=== PATIENT | female | born 1945 | race American Indian/Alaskan Native ===

== ENCOUNTER 2017-02-02 16:47 | Inpatient (IN) | payer MEDICARE ==
[2017-02-02 17:52] LABS: BASO % 0.5 % (0.0-2.0); EOS # 0.2 K/uL (0.0-0.7); EOS % 2.4 % (0.0-4.0); HEMATOCRIT 40.1 % (34.0-47.0); LYMPH # 1.9 K/uL (1.0-4.3); LYMPH % 25.5 % (20.0-40.0); MEAN CELL VOLUME 82.3 fL (81.0-99.0); MEAN CORPUSCULAR HEMOGLOBIN 27.2 pg (27.0-31.0); MEAN PLATELET VOLUME 9.2 fL (7.2-11.7); MONO # 0.5 K/uL (0.0-0.8); MONO % 6.9 % (0.0-10.0); RED CELL DISTRIBUTION WIDTH 15.2 % (11.5-14.5); WHITE BLOOD COUNT 7.3 K/uL (4.8-10.8)
[2017-02-02 17:59] LABS: INR 1.1
--- NOTE | 2017-02-02 18:05 | CT ---
PROCEDURE: CT HEAD WITHOUT CONTRAST. HISTORY: ++BP, lips numb COMPARISON: None available. TECHNIQUE: Axial computed tomography images were obtained through the head/brain without intravenous contrast. Radiation dose: Total exam DLP = 823 mGy-cm. This CT exam was performed using one or more of the following dose reduction techniques: Automated exposure control, adjustment of the mA and/or kV according to patient size, and/or use of iterative reconstruction technique. FINDINGS: HEMORRHAGE: No intracranial hemorrhage. BRAIN: No mass effect or edema. Mild periventricular white matter hypodensity in the left compatible with mild microvascular ischemic disease. VENTRICLES: Unremarkable. No hydrocephalus. CALVARIUM: Unremarkable. PARANASAL SINUSES: Unremarkable as visualized. No significant inflammatory changes. MASTOID AIR CELLS: Unremarkable as visualized. No inflammatory changes. OTHER FINDINGS: None. IMPRESSION: Mild periventricular white matter hypodensity on the left compatible with mild microvascular ischemic disease.
[2017-02-02 18:12] LABS: CHLORIDE 96 mmol/L (98-107)
[2017-02-02 18:13] LABS: POTASSIUM 3.7 mmol/L (3.6-5.2); SODIUM 138 mmol/L (132-148)
[2017-02-02 18:15] LABS: ALB/GLOB RATIO 1.3 (1.0-2.1); AST/SGOT 26 U/L (14-36); BILIRUBIN,TOTAL 0.6 mg/dL (0.2-1.3); BLOOD UREA NITROGEN 19 mg/dL (7-17); CARBON DIOXIDE 29 mmol/L (22-30); CHOLESTEROL 240 mg/dL (0-199); GFR AFRICAN-AMERICAN > 60; GLUCOSE,RANDOM 97 mg/dL (65-105); TOTAL PROTEIN 7.7 g/dL (6.3-8.3)
[2017-02-02 18:16] LABS: ALKALINE PHOSPHATASE 112 U/L (38-126); ALT/SGPT 17 U/L (9-52); CALCIUM 9.5 mg/dl (8.6-10.4)
[2017-02-02] MEDS ORDERED: Aspirin 325 mg EC Tablets PO STA (18:42)
--- NOTE | 2017-02-02 18:44 | C.PDOC ---
History Of Present Illness 71 y/o female presents to emergency department, referred by visiting nurse, for uncontrolled hypertension. Patient reports having circumaural paresthesisa, word -finding and memory issues for 2 days. Patient reports good compliance with blood pressure medications. Denies fever, chills, chest pain, palpitations, shortness of breath, nausea, vomiting, dizziness, headache, or other associated symptoms. Time Seen by Provider: 02/02/17 16:59 Chief Complaint (Nursing): Weakness/Neurological Deficit History Per: Patient History/Exam Limitations: no limitations Onset/Duration Of Symptoms: Days Current Symptoms Are (Timing): Still Present Fall Associated With With Symptoms: No Past Medical History Reviewed: Historical Data, Nursing Documentation, Vital Signs Vital Signs: Last Vital Signs Temp 97.5 F L 02/02/17 21:38 Pulse 63 02/02/17 21:38 Resp 20 02/02/17 21:38 BP 163/91 H 02/02/17 21:38 Pulse Ox 98 02/02/17 21:38 - Medical History PMH: HTN Surgical History: Pacemaker Family History: States: Unknown Family Hx - Social History Hx Alcohol Use: No Hx Substance Use: No Review Of Systems Except As Marked, All Systems Reviewed And Found Negative. Constitutional: Negative for: Fever, Chills Cardiovascular: Negative for: Chest Pain Respiratory: Negative for: Cough, Shortness of Breath, Wheezing Gastrointestinal: Negative for: Vomiting, Abdominal Pain Skin: Negative for: Rash Physical Exam - Physical Exam Appears: Well, Non-toxic, No Acute Distress Skin: Normal Color, Warm, Dry Head: Atraumatic, Normacephalic Eye(s): bilateral: Normal Inspection, PERRL, EOMI Oral Mucosa: Moist Neck: Supple Chest: Symmetrical Cardiovascular: Rhythm Regular Respiratory: Normal Breath Sounds, No Rales, No Rhonchi, No Wheezing Gastrointestinal/Abdominal: Soft, No Tenderness Extremity: Normal ROM, Capillary Refill (< 2 sec. ) Neurological/Psych: Oriented x3, Normal Speech, Normal Cognition, Other (neuro intact, no focal deficits) ED Course And Treatment - Laboratory Results Result Diagrams: 02/02/17 17:45 02/02/17 17:45 Lab Interpretation: Normal (bnp/trop neg.) ECG: Interpreted By Or ECG Rhythm: A Paced Rate From EC O2 Sat by Pulse Oximetry: 100 Pulse Ox Interpretation: Normal - Radiology CXR: Interpreted by Me CXR Interpretation: Yes: No Acute Disease - Other Rad head CT X-Ray: Interpreted by Me, Read By Radiologist (neg) Reevaluation Time: 18:45 Reassessment Condition: Improved (persistently elev BP, clonidine 0.2 mg PO ordered) - Physician Consult Information Outcome Of Conversation: [id number]- d/w Dr. zaira Laws- ok to Tele obs. NIHSS Stroke Scale - Date/Time Evaluation Performed Date Performed: 02/02/17 Time Performed: 17:00 When Was NIHSS Performed: Baseline - How Severe is the Stoke Level of Consciousness: 0=Alert LOC to Questions: 0=Both comments correct LOC to commands: 0=Obeys both correctly Best Gaze: 0=Normal Visual: 0=No visual loss Facial: 0=Normal Motor Arm - Left: 0=No drift Motor Arm - Right: 0=No drift Motor Leg - Left: 0=No drift Motor Leg - Right: 0=No drift Limb Ataxia: 0=Absent Sensory: 0=Normal Best Language: 0=No aphasia Dysarthia: 0=Normal articulation Extinction & Inattention (Neglect): 0=Normal, no object Score: 0 Severity Of Stroke: 0= No Stroke rTPA Inclusion/Exclusion - Refusal of Treatment Patient Refused Treatment: No - Inclusion Criteria for Altepase Patient is 18 years or Older: Yes The Clinical Diagnosis of Ischemic Stroke That is Causing a Potentially Disabling Neurological Deficit: No Time of Onset is Well Established to be Less Than 270 Minute Before Treatment Would Begin: No Risk/Benefit Discussed With Patient/Family Member Present: No - Exclusion Criteria for Altepase Uncontrolled Hypertension at Time of Treatment (Systolic BP above 185 or Diastolic BP above 110 mmHg): Yes Known Bleeding Diathesis Including but Not Limited to: Platelets Below 100,000/ mm,PTT Above 40 sec After Heparin Use, Current Use of Oral Anitcoagulant With INR Greater Than 1.7 or PT Greater Than 15 secs: No Evidence of an Intracranial Hemorrhage: No Evidence of Major Acute Infarct With Signs Greater Than 1/3 MCA Territory: No Suspicion of Subarachnoid Hemorrhage on Pretreatment Evaluation Even if CT Head Negative For Hemorrhage: No Disposition Doctor Will See Patient In The: Hospital Counseled Patient/Family Regarding: Studies Performed, Diagnosis - Disposition Disposition: HOSPITALIZED Disposition Time: 18:46 Condition: GOOD - Clinical Impression Clinical Impression: Hypertensive urgency - Scribe Statement The provider has reviewed the documentation as recorded by the Gianluca Marroquin Provider Attestation: All medical record entries made by the Gianluca were at my direction and personally dictated by me. I have reviewed the chart and agree that the record accurately reflects my personal performance of the history, physical exam, medical decision making, and the department course for this patient. I have also personally directed, reviewed, and agree with the discharge instructions and disposition.
[2017-02-02] MEDS ORDERED: Aspirin 325 mg EC Tablets PO ONE (19:52)
--- NOTE | 2017-02-03 08:14 | CP.PCM.HP ---
History of Present Illness - History of Present Illness History of Present Illness: 71 y/o female with Childhood Asthma, depression and Chr low back pain. Patient has labile HTN but seem control w/ Bystolic 5 mg qD and Valsartan 160 mg qD. Patient has been having daily headache for 3-4 weeks. Yesterday seem worse and felt mild SOB. She was seen c/o home visiting nurse and was advise to go to ER c/o SBP > 210. Present on Admission - Present on Admission Any Indicators Present on Admission: Yes History of DVT/PE: No History of Uncontrolled Diabetes: No Urinary Catheter: No Decubitus Ulcer Present: No Review of Systems - Review of Systems Systems not reviewed;Unavailable: Acuity of Condition - Constitutional Constitutional: Headache. absent: Excessive Sweating, Fever, Increased Appetite , Malaise, Night Sweats - EENT Eyes: Blurred Vision. absent: Itchy Eyes, Loss of Peripheral Vision, Pain, Spots in Vision Ears: absent: Decreased Hearing, Ear Discharge, Ear Pain Nose/Mouth/Throat: absent: Nasal Congestion, Post Nasal Drip, Sinus Pressure, Dysphagia, Halitosis, Hoarsness - Cardiovascular Cardiovascular: Dyspnea. absent: Chest Pain, Diaphoresis, Dyspnea on Exertion, Edema, Irregular Heart Rhythm, Leg Edema, Palpitations, Rapid Heart Rate, Syncope - Respiratory Respiratory: absent: Cough, Hemoptysis, Dyspnea on Exertion, Pain on Inspiration , Chest Congestion, Excessive Mucous Production - Gastrointestinal Gastrointestinal: Heartburn. absent: Abdominal Pain, Belching, Bloating, Diarrhea, Dyspepsia, Fecal Incontinence, Nausea, Vomiting - Genitourinary Genitourinary: absent: Difficulty Urinating, Urinary Incontinence, Urinary Hesitance, Urinary Urgency, Freq UTI - Musculoskeletal Musculoskeletal: Abnormal Gait, Back Pain, Limited Range of Motion, Radiating Pain into Limb. absent: Joint Swelling, Loss of Height, Muscle Weakness, Neck Pain, Stiffness - Integumentary Integumentary: absent: Bleeding Lesions, New Lesions, Rash, Skin Ulcer - Neurological Neurological: Abnormal Gait, Abnormal Movements. absent: Abnormal Hearing, Burning Sensations, Focal Weakness, Lack of Coordination, Radicular Pain, Tremor - Hematologic/Lymphatic Hematologic: absent: Easy Bleeding, Easy Bruising, Lymphadenopathy Past Patient History - Infectious Disease Hx of Infectious Diseases: None - Past Medical History & Family History Past Medical History?: Yes - Past Social History Smoking Status: Never Smoked - CARDIAC Hx Hypertension: Yes Hx Pacemaker: Yes - NEUROLOGICAL Other/Comment: Walks with cane, pinched nerves? - MUSCULOSKELETAL/RHEUMATOLOGICAL Hx Falls: No - PSYCHIATRIC Hx Substance Use: No - SURGICAL HISTORY Hx Surgeries: Yes Other/Comment: Left chest pacemaker. - ANESTHESIA Hx Anesthesia: Yes Hx Anesthesia Reactions: No Hx Malignant Hyperthermia: No Has any member of the family had a problem w/ anesthesia?: No Meds Allergies/Adverse Reactions: Allergies Allergy/AdvReac Type Severity Reaction Status Date / Time No Known Allergies Allergy Unverified 02/02/17 16:59 Physical Exam - Constitutional Appears: No Acute Distress - Eye Exam Eye Exam: Normal appearance - ENT Exam ENT Exam: Mucous Membranes Moist - Neck Exam Neck exam: Positive for: Full Rom. Negative for: Lymphadenopathy, Normal Inspection, Thyromegaly - Respiratory Exam Respiratory Exam: Decreased Breath Sounds. absent: Chest Wall Tenderness, Clear to Auscultation Bilateral, Rales, Rhonchi, Wheezes - Cardiovascular Exam Cardiovascular Exam: REGULAR RHYTHM, +S1, +S2. absent: Gallop, JVD - GI/Abdominal Exam GI & Abdominal Exam: Soft. absent: Guarding, Tenderness - Extremities Exam Extremities exam: Positive for: full ROM, normal capillary refill, pedal pulses present. Negative for: calf tenderness, joint swelling, pedal edema - Neurological Exam Neurological exam: Abnormal Gait, Alert, CN II-XII Intact, Motor Sensory Deficit , Oriented x3 (* (+) oarse tremors on both hands) Results - Vital Signs Recent Vital Signs: Last Vital Signs Temp 98.1 F 02/03/17 05:15 Pulse 62 02/03/17 05:15 Resp 20 02/03/17 05:15 BP 178/88 H 02/03/17 05:15 Pulse Ox 98 02/03/17 05:15 - Labs Result Diagrams: 02/02/17 17:45 02/02/17 17:45 Labs: Laboratory Results - last 24 hr 02/02/17 21:11 TSH 3rd Generation 1.47 - EKG Data EKG Interpreted by: Myself EKG shows normal: Sinus rhythm Rate: Normal - EKG Data When Compared to Previous EKG: No Significant Change Assessment & Plan - Assessment and Plan (Free Text) Assessment: Accelerated HTN; Abn Head CT w/ movement disorder Chr Low Back pain; Asthma Cont ARB and B donald. Restart Symbicort. Tramadol + Acethaminphen BID Cont other Meds for depression or mood.
--- NOTE | 2017-02-03 08:27 | CP.PCM.CON ---
History of Present Illness - History of Present Illness History of Present Illness: I was asked to see patient by Dr. Casillas. Patient is a 71 year old female with a history of HTN, hypercholesterolemia, sick sinus syndrome s/p PPM who presents with malignant hypertension. The patient has had bloodpressure which is dificult to control. She had a systolic blood pressure greater than 200 on visiting nurse check. Review of Systems - Constitutional Constitutional: absent: As Per HPI, Anorexia, Chills, Daytime Sleepiness, Excessive Sweating, Fatigue, Fever, Frequent Falls, Headache, Increased Appetite , Lethargy, Malaise, Night Sweats, Snoring, Sleep Apnea, Weight Gain, Weight Loss, Weakness, Other - EENT Eyes: absent: As Per HPI, Blind Spots, Blurred Vision, Change in Vision, Decreased Night Vision, Diplopia, Discharge, Dry Eye, Exophthalmos, Floaters, Irritation, Itchy Eyes, Loss of Peripheral Vision, Pain, Photophobia, Requires Corrective Lenses, Sees Flashes, Spots in Vision, Tunnel Vision, Other Visual Disturbances, Loss of Vision, Other Ears: absent: As Per HPI, Decreased Hearing, Ear Discharge, Ear Pain, Tinnitus, Abnormal Hearing, Disequilibrium, Dizziness, Other Nose/Mouth/Throat: absent: As Per HPI, Epistaxis, Nasal Congestion, Nasal Discharge, Nasal Obstruction, Nasal Trauma, Nose Pain, Post Nasal Drip, Sinus Pain, Sinus Pressure, Bleeding Gums, Change in Voice, Dental Pain, Dry Mouth, Dysphagia, Halitosis, Hoarsness, Lip Swelling, Mouth Lesions, Mouth Pain, Odynophagia, Sore Throat, Throat Swelling, Tongue Swelling, Facial Pain, Neck Pain, Neck Mass, Other - Cardiovascular Cardiovascular: absent: As Per HPI, Acrocyanosis, Chest Pain, Chest Pain at Rest , Chest Pain with Activity, Claudication, Diaphoresis, Dyspnea, Dyspnea on Exertion, Edema, Irregular Heart Rhythm, Pain Radiating to Arm/Neck/Jaw, Leg Edema, Leg Ulcers, Lightheadedness, Orthopnea, Palpitations, Paroxysmal Nocturnal Dyspnea, Pedal Edema, Radiating Pain, Rapid Heart Rate, Slow Heart Rate, Syncope, Other - Respiratory Respiratory: absent: As Per HPI, Cough, Dyspnea, Hemoptysis, Dyspnea on Exertion , Wheezing, Snoring, Stridor, Pain on Inspiration, Chest Congestion, Excessive Mucous Production, Change in Mucous Color, Pain with Coughing, Other - Gastrointestinal Gastrointestinal: absent: As Per HPI, Abdominal Pain, Belching, Bloating, Change in Bowel Habits, Change in Stool Character, Coffee Ground Emesis, Constipation, Cramping, Diarrhea, Dyspepsia, Dysphagia, Early Satiety, Excessive Flatus, Fecal Incontinence, Heartburn, Hematemesis, Hematochezia, Loose Stools, Melena, Nausea, Odynophagia, Temesmus, Vomiting, Other - Genitourinary Genitourinary: absent: As Per HPI, Change in Urinary Stream, Difficulty Urinating, Dysuria, Flank Pain, Hematuria, Pyuria, Nocturia, Urinary Incontinence, Urinary Frequency, Urinary Hesitance, Urinary Urgency, Voiding Freq/Small Amts, Freq UTI, Hx Renal/Bladder Calculi, Hx /Renal Surgery, Bladder Distension, Other - Musculoskeletal Musculoskeletal: absent: As Per HPI, Abnormal Gait, Arthralgias, Atrophy, Back Pain, Deformity, Joint Swelling, Limited Range of Motion, Loss of Height, Muscle Cramps, Muscle Weakness, Myalgias, Neck Pain, Numbness, Radiating Pain into Limb, Stiffness, Tingling, Other - Integumentary Integumentary: absent: As Per HPI, Acne, Alopecia, Bleeding Lesions, Change in Hair, Change in Nails, Change in Pigmentation, Changing Lesions, Dry Skin, Erythema, Furuncle, Hirsutism, Lesions, New Lesions, Non-Healing Lesions, Photosensitivity, Pruritus, Rash, Skin Pain, Skin Ulcer, Sores, Striae, Swelling , Unusual Bruising, Wounds, Jaundice, Other - Neurological Neurological: absent: As Per HPI, Abnormal Gait, Abnormal Hearing, Abnormal Movements, Abnormal Speech, Behavioral Changes, Burning Sensations, Confusion, Convulsions, Disequilibrium, Dizziness, Numbness, Focal Weakness, Frequent Falls , Headaches, Lack of Coordination, Loss of Vision, Memory Loss, Paresthesias, Radicular Pain, Restless Legs, Sensory Deficit, Syncope, Tingling, Tremor, Vertigo, Weakness, Other Visual Disturbances, Other - Psychiatric Psychiatric: absent: As Per HPI, Abnormal Sleep Pattern, Anhedonia, Anxiety, Auditory Hallucinations, Behavioral Changes, Change in Appetite, Change in Libido, Confusion, Depression, Difficulty Concentrating, Hallucinations, Homicidal Ideation, Hopelessness, Irritability, Memory Loss, Mood Swings, Panic Attacks, Paranoia, Suicidal Ideation, Visual Hallucinations, Tactile Hallucinations, Other - Endocrine Endocrine: absent: As Per HPI, Change in Body Appearance, Change in Libido, Cold Intolorance, Deepening of Voice, Excessive Sweating, Fatigue, Flushing, Heat Intolorance, Increase in Ring/Shoe/Hat Size, Palpitations, Polydipsia, Polyphagia, Polyuria, Other - Hematologic/Lymphatic Hematologic: absent: As Per HPI, Easy Bleeding, Easy Bruising, Lymphadenopathy, Other Past Patient History - Infectious Disease Hx of Infectious Diseases: None - Past Medical History & Family History Past Medical History?: Yes - Past Social History Smoking Status: Never Smoked - CARDIAC Hx Hypertension: Yes Hx Pacemaker: Yes - NEUROLOGICAL Other/Comment: Walks with cane, pinched nerves? - MUSCULOSKELETAL/RHEUMATOLOGICAL Hx Falls: No - PSYCHIATRIC Hx Substance Use: No - SURGICAL HISTORY Hx Surgeries: Yes Other/Comment: Left chest pacemaker. - ANESTHESIA Hx Anesthesia: Yes Hx Anesthesia Reactions: No Hx Malignant Hyperthermia: No Has any member of the family had a problem w/ anesthesia?: No Meds Allergies/Adverse Reactions: Allergies Allergy/AdvReac Type Severity Reaction Status Date / Time No Known Allergies Allergy Unverified 02/02/17 16:59 - Medications Medications: Current Medications Acetaminophen (Tylenol 325mg Tab) 650 mg PO BID [facility] Escitalopram Oxalate (Lexapro) 30 mg PO DAILY [facility] Lamotrigine (Lamictal) 25 mg PO DAILY [facility] Losartan Potassium (Cozaar) 50 mg PO DAILY [facility] Pneumococcal Polyvalent Vaccine (Pneumovax 23 Vaccine) 0.5 ml IM .ONCE ONE Stop: 02/04/17 10:01 Fluticasone/Salmeterol (Advair Diskus 500/50) 1 puff INH RQ12 [facility] Tramadol HCl (Ultram) 50 mg PO BID [facility] Physical Exam - Constitutional Appears: Non-toxic - Head Exam Head Exam: NORMAL INSPECTION - Eye Exam Eye Exam: Normal appearance - ENT Exam ENT Exam: Mucous Membranes Moist - Neck Exam Neck exam: Positive for: Full Rom - Respiratory Exam Respiratory Exam: NORMAL BREATHING PATTERN - Cardiovascular Exam Cardiovascular Exam: REGULAR RHYTHM - GI/Abdominal Exam GI & Abdominal Exam: Normal Bowel Sounds - Rectal Exam Rectal Exam: Deferred - Extremities Exam Extremities exam: Negative for: pedal edema - Back Exam Back exam: NORMAL INSPECTION - Neurological Exam Neurological exam: Alert, Oriented x3 - Psychiatric Exam Psychiatric exam: Normal Affect - Skin Skin Exam: Normal Color Results - Vital Signs Recent Vital Signs: Last Vital Signs Temp 98.1 F 02/03/17 05:15 Pulse 62 02/03/17 05:15 Resp 20 02/03/17 05:15 BP 178/88 H 02/03/17 05:15 Pulse Ox 98 02/03/17 05:15 - Labs Result Diagrams: 02/02/17 17:45 02/02/17 17:45 Labs: Laboratory Results - last 24 hr 02/02/17 21:11 TSH 3rd Generation 1.47 - EKG Data EKG Interpreted by: Myself Assessment & Plan (1) Hypertensive urgency Assessment and Plan: will need aggressive blood pressure control. check echocardiogram. increase metoprolol Status: Acute (2) Sick sinus syndrome Assessment and Plan: atrial paced rhythm on EKG Status: Acute
[2017-02-03 08:44] LABS: RBC URINE 1 /hpf (0-3); URINE BACTERIA OCC (<OCC); URINE BILIRUBIN NEGATIVE (NEGATIVE); URINE BLOOD NEGATIVE (NEGATIVE); URINE COLOR Yellow (YELLOW); URINE GLUCOSE (UA) NORMAL (Normal); URINE KETONE NEGATIVE (NEGATIVE); URINE LEUKOCYTE ESTERASE TRACE Leu/uL (Negative); URINE PROTEIN NEGATIVE (NEGATIVE); URINE UROBILINOGEN NORMAL mg/dL (0.2-1.0); WBC URINE 7 /hpf (0-5)
--- NOTE | 2017-02-03 10:01 | RAD ---
HISTORY: Admission film COMPARISON: No prior. FINDINGS: LUNGS: Moderate venous congestion with left basilar airspace opacity. PLEURA: As above. CARDIOVASCULAR: Cardiomegaly. Left-sided pacemaker. OSSEOUS STRUCTURES: No significant abnormalities. VISUALIZED UPPER ABDOMEN: Normal. OTHER FINDINGS: None. IMPRESSION: Moderate venous congestion with left basilar airspace opacity.
[2017-02-03] MEDS: Fluticasone-Salmeterol 500-50mcg Diskus INH SCH (20:20)
[2017-02-04] MEDS: Fluticasone-Salmeterol 500-50mcg Diskus INH SCH (09:00)
[2017-02-04] MEDS ORDERED: Pneumococcal 23-Valent Vaccine IM ONE (10:00)
--- NOTE | 2017-02-04 11:04 | CP.PCM.PN ---
Subjective - Date & Time of Evaluation Date of Evaluation: 02/04/17 Time of Evaluation: 11:00 - Subjective Subjective: patient has no chest pain or headache. lopressor increased yesterday. Objective - Vital Signs/Intake and Output Vital Signs (last 24 hours): Temp Pulse Resp BP Pulse Ox 99.4 F 69 20 150/88 95 02/04/17 07:00 02/04/17 08:24 02/04/17 07:00 02/04/17 07:00 02/04/17 07:00 Intake and Output: 02/04/17 02/04/17 06:59 18:59 Intake Total 350 Balance 350 - Medications Medications: Current Medications Acetaminophen (Tylenol 325mg Tab) 650 mg PO BID [facility] Last Admin: 02/04/17 09:27 Dose: 650 mg Escitalopram Oxalate (Lexapro) 30 mg PO DAILY [facility] Last Admin: 02/04/17 09:30 Dose: 30 mg Lamotrigine (Lamictal) 25 mg PO DAILY [facility] Last Admin: 02/04/17 09:30 Dose: 25 mg Losartan Potassium (Cozaar) 50 mg PO DAILY [facility] Last Admin: 02/03/17 09:47 Dose: 50 mg Metoprolol Tartrate (Lopressor) 100 mg PO BID [facility] Last Admin: 02/04/17 09:31 Dose: 100 mg Fluticasone/Salmeterol (Advair Diskus 500/50) 1 puff INH RQ12 [facility] Tramadol HCl (Ultram) 50 mg PO BID [facility] Last Admin: 02/04/17 09:28 Dose: 50 mg - Labs Labs: PT 12.4 SECONDS (9.7-12.2) H 02/02/17 17:45 INR 1.1 02/02/17 17:45 APTT 32 SECONDS (21-34) 02/02/17 17:45 - Constitutional Appears: Non-toxic - Head Exam Head Exam: NORMAL INSPECTION - Eye Exam Eye Exam: Normal appearance - ENT Exam ENT Exam: Mucous Membranes Moist - Neck Exam Neck Exam: Full ROM - Respiratory Exam Respiratory Exam: NORMAL BREATHING PATTERN - Cardiovascular Exam Cardiovascular Exam: REGULAR RHYTHM - GI/Abdominal Exam GI & Abdominal Exam: Normal Bowel Sounds - Rectal Exam Rectal Exam: Deferred - Extremities Exam Extremities Exam: absent: Pedal Edema - Back Exam Back Exam: NORMAL INSPECTION - Neurological Exam Neurological Exam: Alert - Psychiatric Exam Psychiatric exam: Normal Affect - Skin Skin Exam: Normal Color Assessment and Plan (1) Hypertensive urgency Assessment & Plan: improving. I will increase losartan to 100 mg daily. Patient is stable fro discharge from a cardiac standpoint. Patient will follow up with her primary lane attendant, Dr. Campbell Status: Acute (2) Sick sinus syndrome Assessment & Plan: pacemaker function normal Status: Acute
--- NOTE | 2017-02-04 11:39 | CP.PCM.PN ---
Subjective - Date & Time of Evaluation Date of Evaluation: 02/04/17 Time of Evaluation: 11:36 - Subjective Subjective: S: Feels better. No repeat syncope. Deny chestpain, SOB or fever. Objective - Vital Signs/Intake and Output Vital Signs (last 24 hours): Temp Pulse Resp BP Pulse Ox 99.4 F 69 20 150/88 95 02/04/17 07:00 02/04/17 08:24 02/04/17 07:00 02/04/17 07:00 02/04/17 07:00 Intake and Output: 02/04/17 02/04/17 06:59 18:59 Intake Total 350 Balance 350 - Medications Medications: Current Medications Acetaminophen (Tylenol 325mg Tab) 650 mg PO BID [facility] Last Admin: 02/04/17 09:27 Dose: 650 mg Escitalopram Oxalate (Lexapro) 30 mg PO DAILY [facility] Last Admin: 02/04/17 09:30 Dose: 30 mg Lamotrigine (Lamictal) 25 mg PO DAILY [facility] Last Admin: 02/04/17 09:30 Dose: 25 mg Losartan Potassium (Cozaar) 100 mg PO DAILY [facility] Metoprolol Tartrate (Lopressor) 100 mg PO BID [facility] Last Admin: 02/04/17 09:31 Dose: 100 mg Fluticasone/Salmeterol (Advair Diskus 500/50) 1 puff INH RQ12 [facility] Tramadol HCl (Ultram) 50 mg PO BID [facility] Last Admin: 02/04/17 09:28 Dose: 50 mg - Labs Labs: PT 12.4 SECONDS (9.7-12.2) H 02/02/17 17:45 INR 1.1 02/02/17 17:45 APTT 32 SECONDS (21-34) 02/02/17 17:45 - Constitutional Appears: No Acute Distress - Head Exam Head Exam: NORMAL INSPECTION - Eye Exam Eye Exam: Normal appearance - ENT Exam ENT Exam: Normal Exam - Neck Exam Neck Exam: Normal Inspection - Respiratory Exam Respiratory Exam: NORMAL BREATHING PATTERN - Cardiovascular Exam Cardiovascular Exam: REGULAR RHYTHM - GI/Abdominal Exam GI & Abdominal Exam: Soft - Rectal Exam Rectal Exam: Deferred - Neurological Exam Neurological Exam: Alert - Psychiatric Exam Psychiatric exam: Normal Mood - Skin Skin Exam: Normal Color Assessment and Plan (1) Hypertensive urgency Status: Acute (2) Sick sinus syndrome Status: Acute (3) Syncope Status: Acute - Assessment and Plan (Free Text) Plan: P: Appreciate Cardiology notes. Awaiting Neurology notes.Continue medication
--- NOTE | 2017-02-05 08:41 | CP.PCM.PN ---
Subjective - Date & Time of Evaluation Date of Evaluation: 02/05/17 Time of Evaluation: 08:25 - Subjective Subjective: Pt d feels much better; no more headache or numbness on R side No CP, no more SOB, no fatigue Objective - Vital Signs/Intake and Output Vital Signs (last 24 hours): Temp Pulse Resp BP Pulse Ox 98.4 F 61 20 133/85 98 02/04/17 23:20 02/04/17 23:30 02/04/17 23:20 02/04/17 23:20 02/04/17 23:20 - Medications Medications: Current Medications Acetaminophen (Tylenol 325mg Tab) 650 mg PO BID [facility] Last Admin: 02/04/17 18:37 Dose: 650 mg Aspirin (Aspirin Chewable) 81 mg PO DAILY [facility] Escitalopram Oxalate (Lexapro) 30 mg PO DAILY [facility] Last Admin: 02/04/17 09:30 Dose: 30 mg Lamotrigine (Lamictal) 25 mg PO DAILY [facility] Last Admin: 02/04/17 09:30 Dose: 25 mg Losartan Potassium (Cozaar) 100 mg PO DAILY [facility] Metoprolol Tartrate (Lopressor) 100 mg PO BID [facility] Last Admin: 02/04/17 18:36 Dose: 100 mg Rosuvastatin Calcium (Crestor) 5 mg PO HS [facility] Fluticasone/Salmeterol (Advair Diskus 500/50) 1 puff INH RQ12 [facility] Last Admin: 02/04/17 09:00 Dose: 1 puff Tramadol HCl (Ultram) 50 mg PO BID [facility] Last Admin: 02/04/17 18:38 Dose: 50 mg - Labs Labs: PT 12.4 SECONDS (9.7-12.2) H 02/02/17 17:45 INR 1.1 02/02/17 17:45 APTT 32 SECONDS (21-34) 02/02/17 17:45 - Constitutional Appears: No Acute Distress - Eye Exam Eye Exam: Normal appearance - ENT Exam ENT Exam: Mucous Membranes Moist - Neck Exam Neck Exam: Full ROM. absent: Lymphadenopathy, Thyromegaly - Respiratory Exam Respiratory Exam: Clear to Ausculation Bilateral. absent: Rales, Rhonchi, Wheezes - Cardiovascular Exam Cardiovascular Exam: REGULAR RHYTHM, +S1, +S2, Murmur. absent: Gallop, JVD - GI/Abdominal Exam GI & Abdominal Exam: Soft. absent: Tenderness, Mass - Extremities Exam Extremities Exam: Full ROM. absent: Calf Tenderness, Joint Swelling, Normal Capillary Refill - Back Exam Back Exam: muscle spasm, paraspinal tenderness Assessment and Plan - Assessment and Plan (Free Text) Assessment: Accelerated HTN - controlled Abn CXR ? mass Cont meds/ check CT of chest
--- NOTE | 2017-02-05 08:56 | CP.PCM.PN ---
Subjective - Date & Time of Evaluation Date of Evaluation: 02/05/17 Time of Evaluation: 07:35 - Subjective Subjective: no new complaints Objective - Vital Signs/Intake and Output Vital Signs (last 24 hours): Temp Pulse Resp BP Pulse Ox 98.4 F 61 20 133/85 98 02/04/17 23:20 02/04/17 23:30 02/04/17 23:20 02/04/17 23:20 02/04/17 23:20 - Medications Medications: Current Medications Acetaminophen (Tylenol 325mg Tab) 650 mg PO BID [facility] Last Admin: 02/04/17 18:37 Dose: 650 mg Aspirin (Aspirin Chewable) 81 mg PO DAILY [facility] Escitalopram Oxalate (Lexapro) 30 mg PO DAILY [facility] Last Admin: 02/04/17 09:30 Dose: 30 mg Lamotrigine (Lamictal) 25 mg PO DAILY [facility] Last Admin: 02/04/17 09:30 Dose: 25 mg Losartan Potassium (Cozaar) 100 mg PO DAILY [facility] Metoprolol Tartrate (Lopressor) 100 mg PO BID [facility] Last Admin: 02/04/17 18:36 Dose: 100 mg Rosuvastatin Calcium (Crestor) 5 mg PO HS [facility] Fluticasone/Salmeterol (Advair Diskus 500/50) 1 puff INH RQ12 [facility] Last Admin: 02/04/17 09:00 Dose: 1 puff Tramadol HCl (Ultram) 50 mg PO BID [facility] Last Admin: 02/04/17 18:38 Dose: 50 mg - Labs Labs: PT 12.4 SECONDS (9.7-12.2) H 02/02/17 17:45 INR 1.1 02/02/17 17:45 APTT 32 SECONDS (21-34) 02/02/17 17:45 - Constitutional Appears: Non-toxic - Head Exam Head Exam: NORMAL INSPECTION - Eye Exam Eye Exam: Normal appearance - ENT Exam ENT Exam: Mucous Membranes Moist - Neck Exam Neck Exam: Full ROM - Respiratory Exam Respiratory Exam: NORMAL BREATHING PATTERN - Cardiovascular Exam Cardiovascular Exam: REGULAR RHYTHM - GI/Abdominal Exam GI & Abdominal Exam: Normal Bowel Sounds - Rectal Exam Rectal Exam: Deferred - Extremities Exam Extremities Exam: Pedal Edema - Back Exam Back Exam: NORMAL INSPECTION - Neurological Exam Neurological Exam: Alert - Psychiatric Exam Psychiatric exam: Normal Affect - Skin Skin Exam: Normal Color Assessment and Plan (1) Hypertensive urgency Assessment & Plan: improved Status: Acute (2) Sick sinus syndrome Assessment & Plan: PPM Status: Acute
[2017-02-05] MEDS ORDERED: Iohexol 350mg/ml 100 ML ONE (10:01)
--- NOTE | 2017-02-05 10:03 | CON ---
DATE: 02/03/2017 REASON FOR CONSULTATION: Word-finding difficulties, and paresthesias in the face. HISTORY OF PRESENTING ILLNESS: The patient is a 71-year-old female who was sent to the [facility] by a visiting nurse after the patient was noted to have uncontrolled blood pressure. The patient w as also noted to have numbness around the face, as well as difficulty finding words. Her symptoms we re present for the last 2 days. The patient's systolic blood pressure was in 200s. That is why she was brought here. She does complain of mild headache. Denies any other complaints. REVIEW OF SYSTEMS: Denies any chest pain, shortness of breath, abdominal pain, constipation, d iarrhea, dysuria, pyuria, cough or sputum production. PAST MEDICAL HISTORY: Includes hypertension. MEDICATIONS AT HOME: Include Lexapro, tramadol p.r.n., Diovan, Bystolic, and lamotrigine. ALLERGIES: No known drug allergies. SOCIAL HISTORY: Denies smoking, use of alcohol, or illicit drugs. FAMILY HISTORY: Reviewed and noncontributory to the case. GENERAL PHYSICAL EXAMINATION: The patient is an elderly pleasant female lying on the bed in no acute distress. Her blood pressure is 125/75, heart rate is 61 per minute, breathing at a rate of 16 per minute, temp erature is 98.3 degrees Fahrenheit. HENT EXAMINATION: Normocephalic, atraumatic. NECK: Supple. There are no carotid bruits. LUNGS: Clear. CARDIOVASCULAR SYSTEM EXAMINATION: S1, S2 audible. No murmurs. ABDOMEN: Soft, nontender. Bowel sounds present. NEUROLOGY EXAMINATION: MENTAL STATUS: The patient is awake, alert, oriented to place, year, person. She follows all simple commands. Her recent memory is 2/3 in 5 minutes. She is able to do serial 7. CRANIAL NERVE EXAMINATION: Pupils are 3 mm, bilaterally reactive to light. Visual castillo are full. Extraocular movements are intact. There is no facial asymmetry. Palate is upgoing bilaterally and tongue is midline. MOTOR EXAMINATION: Tone is normal. Power is 5/5 bilaterally in all extremities. Reflexes 1+ and sy mmetrical. Plantars downgoing bilaterally. CEREBELLAR EXAMINATION: [id number] shows no dysmetria. GAIT: Narrow based. She walks with the help of a cane, and is low. Labs reviewed shows WBC 7.3, hemoglobin 13.2, hematocrit of 14.1, and platelets of 211. INR is 1.1. Sodium is 138, potassium 3.7, chloride 96, carbon dioxide content 29, BUN of 19, creatinine 0.9, and glucose of 100. Her urine WBC is 1, nitrite negative. She had a CT scan of the head done which showed mild periventricular white matter hypodensity on the left, compatible with mild microvascular ischemic disease. IMPRESSION: Status post word-finding difficulty, with tingling around the face. This may have been secondary to hypertensive encephalopathy. Rule out any seizures. RECOMMENDATIONS: 1. The patient to have an electroencephalogram. 2. Unfortunately, we cannot obtain MRI because of the history of pacemaker placement. 3. Consider starting the patient on aspirin, with underlying cerebrovascular disease. 4. The patient's blood pressure is better controlled. 5. Please continue supportive care and other treatment. Thank you for the opportunity to participate in the care of this patient. William Tabor MD cc: [id number] TT: 02/03/2017 19:58:07 Confirmation # [id number] Dictation # [id number] [place]
--- NOTE | 2017-02-05 11:50 | CT ---
PROCEDURE: CT Chest with contrast HISTORY: Air space opacity on left base COMPARISON: None. TECHNIQUE: Contiguous axial images were obtained through the chest with intravenous contrast enhancement. Sagittal and coronal reconstructions were performed. IV contrast: 100 mL Omnipaque 350 Radiation dose (DLP): 424.50 mGy-cm. This CT exam was performed using one or more of the following dose reduction techniques: Automated exposure control, adjustment of the mA and/or kV according to patient size, and/or use of iterative reconstruction technique. FINDINGS: LUNGS: Clear lungs. Visualized airway clear. MEDIASTINUM: Unremarkable thoracic aorta. No aneurysm or dissection. Normal heart size. Permanent pacemaker noted. Main pulmonary artery unremarkable. No vascular congestion. No lymphadenopathy. There is 1.1 cm nodule in the right lobe of the thyroid and a 1.7 cm nodule in the left lobe of the thyroid. Further evaluation with thyroid ultrasound examination is suggested. PLEURA: No pleural fluid. No pneumothorax. BONES: No fracture. No destructive lesion. UPPER ABDOMEN: In the superior right hepatic lobe, at the dome of the liver, there is a 9 mm homogeneously enhancing mass identified. This may represent a hemangioma but the possibility of hepatic cellular neoplasm must also be considered. Further evaluation with multiphasic contrast enhanced CT examination is advised. Incidental calcified granuloma noted in the medial left hepatic lobe. Status post cholecystectomy. Bilateral renal cortical cysts, largest 3.4 cm in the upper pole right kidney. OTHER FINDINGS: None. IMPRESSION: No pulmonary infiltrate. Permanent pacemaker noted. Nodule in the each lobe of the thyroid for which correlation with thyroid ultrasound examination is advised. 9 mm enhancing mass in right lobe of liver. Evaluation with multiphasic contrast enhanced CT examination is advised. Bilateral thyroid nodules. Correlation with thyroid ultrasound examination is suggested. Bilateral renal cysts.
--- NOTE | 2017-02-05 17:36 | CARD ---
APPROVED REPORT EXAM: Two-dimensional and M-mode echocardiogram with Doppler and color Doppler. Other Information Quality : GoodRhythm : INDICATION Dyspnea Syncope RISK FACTORS Hypertension M-Mode DIMENSIONS RVDd1.87 (2.1-3.2cm)Left Atrium (MM)3.37 (2.5-4.0cm) IVSd0.87 (0.7-1.1cm)Aortic Root2.92 (2.2-3.7cm) LVDd5.03 (4.0-5.6cm)Aortic Cusp Exc.2.19 (1.5-2.0cm) PWd0.97 (0.7-1.1cm)FS (%) 48 % LVDs2.64 (2.0-3.8cm)LVEF (%)79 (>50%) Mitral Valve MV E Zjevexmk312.1cm/sMV A Xnafxhyk04.5cm/sE/A ratio2.1 TDI E/Lateral E'0.0E/Medial E'0.0 Tricuspid Valve TR Peak Ivipqbvt202kh/sTR Peak Gr.[id number] LEFT VENTRICLE The left ventricle is normal size. There is normal left ventricular wall thickness. The left ventricular systolic function is normal. The left ventricular ejection fraction is within the normal range. There is normal LV segmental wall motion. The left ventricular diastolic function is normal. RIGHT VENTRICLE The right ventricle is normal size. The right ventricular systolic function is normal. There is a pacemaker lead in the right ventricle. ATRIA The left atrium size is normal. There is a pacemaker lead seen in the right atrium. AORTIC VALVE The aortic valve is normal in structure. No aortic regurgitation is present. MITRAL VALVE The mitral valve is normal in structure. Mitral regurgitation is trace. TRICUSPID VALVE The tricuspid valve is normal in structure. There is mild tricuspid regurgitation. Right ventricular systolic pressure is estimated at less than 30 mmHg. PULMONIC VALVE The pulmonic valve is not well visualized. GREAT VESSELS The ascending aorta is normal in size. The IVC is normal in size and collapses >50% with inspiration. PERICARDIAL EFFUSION There is no pericardial effusion. <Conclusion> Normal biventricular function. No significant valvular abnormality noted. Pacemaker wire in right heart. No pericardial effusion.
[2017-02-05] MEDS: Fluticasone-Salmeterol 500-50mcg Diskus INH SCH (19:23)
[2017-02-06] MEDS: Fluticasone-Salmeterol 500-50mcg Diskus INH SCH ×2 (07:40→19:09)
--- NOTE | 2017-02-06 08:31 | CP.PCM.PN ---
Subjective - Date & Time of Evaluation Date of Evaluation: 02/06/17 Time of Evaluation: 08:30 - Subjective Subjective: Pt no complain; no CP, no SOB, no edema, no cough BP still slight increase but asymptomatic. Objective - Vital Signs/Intake and Output Vital Signs (last 24 hours): Temp Pulse Resp BP Pulse Ox 97.9 F 60 18 162/97 H 97 02/06/17 07:30 02/06/17 07:30 02/06/17 07:30 02/06/17 07:30 02/06/17 07:30 Intake and Output: 02/06/17 02/06/17 06:59 18:59 Intake Total 350 Balance 350 - Medications Medications: Current Medications Acetaminophen (Tylenol 325mg Tab) 650 mg PO BID [facility] Last Admin: 02/05/17 18:24 Dose: 650 mg Aspirin (Aspirin Chewable) 81 mg PO DAILY [facility] Last Admin: 02/05/17 11:52 Dose: 81 mg Escitalopram Oxalate (Lexapro) 30 mg PO DAILY [facility] Last Admin: 02/05/17 12:32 Dose: 30 mg Lamotrigine (Lamictal) 25 mg PO DAILY [facility] Last Admin: 02/05/17 12:32 Dose: 25 mg Losartan Potassium (Cozaar) 100 mg PO DAILY [facility] Last Admin: 02/05/17 11:52 Dose: 100 mg Metoprolol Tartrate (Lopressor) 100 mg PO BID [facility] Last Admin: 02/05/17 18:23 Dose: 100 mg Rosuvastatin Calcium (Crestor) 5 mg PO HS [facility] Last Admin: 02/05/17 21:43 Dose: 5 mg Fluticasone/Salmeterol (Advair Diskus 500/50) 1 puff INH RQ12 [facility] Last Admin: 02/06/17 07:40 Dose: 1 puff Tramadol HCl (Ultram) 50 mg PO BID [facility] Last Admin: 02/05/17 18:26 Dose: 50 mg - Labs Labs: PT 12.4 SECONDS (9.7-12.2) H 02/02/17 17:45 INR 1.1 02/02/17 17:45 APTT 32 SECONDS (21-34) 02/02/17 17:45 - Constitutional Appears: No Acute Distress - Eye Exam Eye Exam: Normal appearance - ENT Exam ENT Exam: Mucous Membranes Moist - Neck Exam Neck Exam: Full ROM. absent: Lymphadenopathy, Normal Inspection - Respiratory Exam Respiratory Exam: Decreased Breath Sounds, Clear to Ausculation Bilateral. absent: Rales, Rhonchi - Cardiovascular Exam Cardiovascular Exam: REGULAR RHYTHM, +S1, +S2. absent: Gallop, Murmur - GI/Abdominal Exam GI & Abdominal Exam: Soft, Normal Bowel Sounds. absent: Tenderness - Extremities Exam Extremities Exam: Full ROM, Normal Capillary Refill. absent: Calf Tenderness, Joint Swelling, Pedal Edema Assessment and Plan - Assessment and Plan (Free Text) Assessment: HTN urgency - acceptably high Asthma; Chr LBP Licer lesion ?? malignant GI eval Cont meds / add HCTZ Encourage to ambulate
[2017-02-06] MEDS ORDERED: Iodixanol 320 MG/ML 100 ML BOTTLE IV ONE (10:14)
--- NOTE | 2017-02-06 11:20 | CP.PCM.CON ---
History of Present Illness - History of Present Illness History of Present Illness: CC: Liver lesion HPI: GI consult requested on this 71 year old woman who has an incidental 9 mm liver lesion on Chest CT. I reviewed the films personally with Radiologist. Patient denies liver disease, jaundice, abdominal pain. She was admitted with Hypertension difficult to control. Discussed with Dr Casillas. Patient also undergoing stroke evaluation, including EEG and swallowing evaluation. Review of Systems - Constitutional Constitutional: absent: Fever - EENT Eyes: absent: Change in Vision Ears: absent: Tinnitus Nose/Mouth/Throat: absent: Nasal Discharge - Cardiovascular Cardiovascular: absent: Chest Pain at Rest - Respiratory Respiratory: absent: Dyspnea on Exertion - Gastrointestinal Gastrointestinal: absent: Abdominal Pain, Change in Bowel Habits - Genitourinary Genitourinary: absent: Difficulty Urinating - Musculoskeletal Musculoskeletal: absent: Back Pain - Integumentary Integumentary: absent: Bleeding Lesions - Neurological Neurological: absent: Abnormal Hearing - Psychiatric Psychiatric: absent: Anxiety Past Patient History - Infectious Disease Hx of Infectious Diseases: None - Past Medical History & Family History Past Medical History?: Yes - Past Social History Smoking Status: Never Smoked - CARDIAC Hx Hypercholesterolemia: Yes Hx Hypertension: Yes - NEUROLOGICAL Other/Comment: Walks with cane, pinched nerves? - MUSCULOSKELETAL/RHEUMATOLOGICAL Hx Falls: No - PSYCHIATRIC Hx Substance Use: No - SURGICAL HISTORY Hx Surgeries: Yes Other/Comment: Left chest pacemaker. - ANESTHESIA Hx Anesthesia: Yes Hx Anesthesia Reactions: No Hx Malignant Hyperthermia: No Has any member of the family had a problem w/ anesthesia?: No Meds Allergies/Adverse Reactions: Allergies Allergy/AdvReac Type Severity Reaction Status Date / Time No Known Allergies Allergy Unverified 02/02/17 16:59 - Medications Medications: Current Medications Acetaminophen (Tylenol 325mg Tab) 650 mg PO BID [facility] Last Admin: 02/06/17 09:14 Dose: 650 mg Aspirin (Aspirin Chewable) 81 mg PO DAILY [facility] Last Admin: 02/06/17 09:11 Dose: 81 mg Escitalopram Oxalate (Lexapro) 30 mg PO DAILY [facility] Last Admin: 02/06/17 09:12 Dose: 30 mg Lamotrigine (Lamictal) 25 mg PO DAILY [facility] Last Admin: 02/06/17 09:12 Dose: 25 mg Losartan Potassium (Cozaar) 100 mg PO DAILY [facility] Last Admin: 02/06/17 09:12 Dose: 100 mg Metoprolol Tartrate (Lopressor) 100 mg PO BID [facility] Last Admin: 02/06/17 09:14 Dose: 100 mg Rosuvastatin Calcium (Crestor) 5 mg PO HS [facility] Last Admin: 02/05/17 21:43 Dose: 5 mg Fluticasone/Salmeterol (Advair Diskus 500/50) 1 puff INH RQ12 [facility] Last Admin: 02/06/17 07:40 Dose: 1 puff Tramadol HCl (Ultram) 50 mg PO BID [facility] Last Admin: 02/06/17 09:14 Dose: 50 mg Physical Exam - Constitutional Appears: Well, No Acute Distress - Head Exam Head Exam: NORMOCEPHALIC - Eye Exam Eye Exam: absent: Scleral icterus - ENT Exam ENT Exam: Normal Exam - Neck Exam Neck exam: Positive for: Normal Inspection - Respiratory Exam Respiratory Exam: Clear to Auscultation Bilateral - Cardiovascular Exam Cardiovascular Exam: REGULAR RHYTHM - GI/Abdominal Exam GI & Abdominal Exam: Soft. absent: Mass, Organomegaly, Tenderness - Extremities Exam Extremities exam: Positive for: normal inspection - Neurological Exam Neurological exam: Alert, Oriented x3 - Psychiatric Exam Psychiatric exam: Normal Affect, Normal Mood - Skin Skin Exam: Warm Results - Vital Signs Recent Vital Signs: Last Vital Signs Temp 97.9 F 02/06/17 07:30 Pulse 60 02/06/17 07:30 Resp 18 02/06/17 07:30 BP 162/97 H 02/06/17 07:30 Pulse Ox 97 02/06/17 07:30 - Labs Result Diagrams: 02/02/17 17:45 02/02/17 17:45 Labs: Laboratory Results - last 24 hr 02/05/17 02/05/17 02/05/17 11:48 16:34 21:12 POC Glucose (mg/dL) 109 96 113 H 02/06/17 06:12 POC Glucose (mg/dL) 83 Assessment & Plan (1) Hypertensive urgency Assessment and Plan: Managed by Dr Gilliam Status: Acute (2) Liver mass, right lobe Assessment and Plan: Preliminary CT review shows faint subcentimeter lesion more consistent with Hemangioma. Await final report. No further workup recommended at this time, pending final CT report. Status: Acute - Date & Time Date: 02/06/17 Time: 11:25
--- NOTE | 2017-02-06 11:40 | VASCLAB ---
PROCEDURE: HISTORY: [place] numb on R side; ? TIA COMPARISON: None available. TECHNIQUE: Grayscale and duplex Doppler evaluation of the cervical carotid and vertebral arteries were performed. The common carotid, carotid bifurcations and cervical Internal Carotid Artery (ICA) and proximal External Carotid Artery (ECA) were evaluated. The vertebral arteries were evaluated for gross patency and flow direction. Report prepared by Bell Roth Valarie FINDINGS: RIGHT CAROTID ARTERIES: 1. Common Carotid Artery: No significant focal plaque formation of the right common carotid artery. Maximum Peak Systolic velocity: 59.4 cm/sec: End-diastolic velocity 12.5 cm/sec. 2. Carotid Bifurcation: No significant focal plaque formation. Maximum Peak Systolic velocity: 58.1 cm/sec: End-diastolic velocity 14.2 cm/sec. 3. Internal Carotid Artery: No significant focal plaque. Plaque description: 3.1. Proximal Segment: Peak systolic velocity 45.9 cm/sec: End-diastolic velocity 12.5 cm/sec - % stenosis 0-15% 3.2. Middle Segment: Peak systolic velocity 61.2 cm/sec: End-diastolic velocity 22.9 cm/sec - % stenosis 0-15% 3.3. Distal Segment: Peak systolic velocity 76.2 cm/sec: End-diastolic velocity 30.9 cm/sec - % stenosis 0-15% 4. External Carotid Artery: No significant focal plaque formation. Peak systolic velocity 45.7 cm/sec 5. ICA/CCA Ratio: 1.5 LEFT CAROTID ARTERIES: 1. Common Carotid Artery: No significant focal plaque formation of the left common carotid artery. Maximum Peak Systolic velocity: 59.2 cm/sec: End-diastolic velocity 13.1 cm/sec. 2. Carotid Bifurcation: No significant focal plaque formation. Maximum Peak Systolic velocity: 48.8 cm/sec: End-diastolic velocity 12.1 cm/sec. 3. Internal Carotid Artery: No significant focal plaque. Plaque description: 3.1. Proximal Segment: Peak systolic velocity 37.1 cm/sec: End-diastolic velocity 11.6 cm/sec - % stenosis 0-15% 3.2. Middle Segment: Peak systolic velocity 61.2 cm/sec: End-diastolic velocity 22.9 cm/sec - % stenosis 0-15% 3.3. Distal Segment: Peak systolic velocity 76.2 cm/sec: End-diastolic velocity 30.9 cm/sec - % stenosis 0-15% 4. External Carotid Artery: No significant focal plaque formation. Peak systolic velocity 44.3 5. cm/sec 6. ICA/CCA Ratio: 1.6 VERTEBRAL ARTERIES: 1. Right Vertebral Artery: The right vertebral artery flow direction is antegrade. 2. Left Vertebral Artery: The left vertebral artery flow direction is antegrade. OTHER FINDINGS: 1. Right Brachial Blood pressure: 133 mmHg. 2. Left Brachial Blood pressure: 142 mmHg. IMPRESSION: RIGHT: Duplex scan does not suggest hemodynamically significant stenosis of the right extracranial carotid arteries. LEFT: Duplex scan does not suggest hemodynamically significant stenosis of the left extracranial carotid arteries.
--- NOTE | 2017-02-06 13:02 | CT ---
Liver protocol triple phase CT Indication: Enhancing mass seen on CT of chest Technique: Contiguous axial images of the abdomen and pelvis without & with IV contrast utilizing liver protocol. Coronal and Sagittal reformats generated and reviewed. This CT exam was performed using 1 or more of the falling dose reduction techniques: Automated exposure control, adjustment of the MAA and/or kV according to patient size, and/or use of iterative reconstruction technique. Contrast: 100 cc Visipaque 320 Oral contrast was not administered. 100 cc Visipaque 320. Radiation dose: Total exam DLP = 1537.37 MGy-cm. Comparison: CT chest with contrast performed 02/05/17 Findings: There is no visible consolidation, pleural effusion, or pneumothorax. Small hiatal hernia. Enhancing mass best demonstrated on CT of the chest performed 02/05/17 within the right hepatic lobe superior segment at the dome of the liver. This lesion is not adequately visualized on this study and cannot be further characterized due to suboptimal arterial and portal venous phases which were obtained ; recommend repeat dedicated cross-sectional CT with adjusted timing of image acquisition. Punctate calcification within the hepatic dome. 3.1 cm right upper pole renal cyst. Additional bilateral too small to characterize hypodensities, statistically likely cysts. The kidneys enhance symmetrically. No hydronephrosis or obstructing calculus evident. Fatty atrophy of the pancreas. The spleen appears appear unremarkable. Cholecystectomy. Small hiatal hernia. The stomach is nondistended. The included upper abdominal bowel loops appear within normal limits of caliber without evidence of intestinal obstruction. Included portions of the appendix appear unremarkable without secondary signs of acute appendicitis. There is no definite free air. 6 mm fat containing umbilical hernia. Degenerative changes. Impression: Enhancing mass best demonstrated on CT of the chest performed 02/05/17 within the right hepatic lobe superior segment at the dome of the liver. This lesion is not adequately visualized on this study and cannot be further characterized due to suboptimal arterial and portal venous phases which were obtained ; recommend repeat dedicated cross-sectional CT with adjusted timing of image acquisition in order to further characterize this lesion. Punctate calcification within the hepatic dome. 3.1 cm right upper pole renal cyst. Additional bilateral too small to characterize hypodensities, statistically likely cysts. Cholecystectomy. Small hiatal hernia.
--- NOTE | 2017-02-07 05:48 | CP.PCM.PN ---
Subjective - Date & Time of Evaluation Date of Evaluation: 02/06/17 Time of Evaluation: 08:40 - Subjective Subjective: no new complaints. Objective - Vital Signs/Intake and Output Vital Signs (last 24 hours): Temp Pulse Resp BP Pulse Ox 98.4 F 62 20 131/78 98 02/06/17 23:20 02/06/17 23:30 02/06/17 23:20 02/06/17 23:20 02/06/17 23:20 Intake and Output: 02/06/17 02/07/17 18:59 06:59 Intake Total 750 Balance 750 - Medications Medications: Current Medications Acetaminophen (Tylenol 325mg Tab) 650 mg PO BID [facility] Last Admin: 02/06/17 17:50 Dose: 650 mg Aspirin (Aspirin Chewable) 81 mg PO DAILY [facility] Last Admin: 02/06/17 09:11 Dose: 81 mg Escitalopram Oxalate (Lexapro) 30 mg PO DAILY [facility] Last Admin: 02/06/17 09:12 Dose: 30 mg Lamotrigine (Lamictal) 25 mg PO DAILY [facility] Last Admin: 02/06/17 09:12 Dose: 25 mg Losartan Potassium (Cozaar) 100 mg PO DAILY [facility] Last Admin: 02/06/17 09:12 Dose: 100 mg Metoprolol Tartrate (Lopressor) 100 mg PO BID [facility] Last Admin: 02/06/17 17:52 Dose: 100 mg Rosuvastatin Calcium (Crestor) 5 mg PO HS [facility] Last Admin: 02/06/17 21:17 Dose: 5 mg Fluticasone/Salmeterol (Advair Diskus 500/50) 1 puff INH RQ12 [facility] Last Admin: 02/06/17 19:09 Dose: 1 puff Tramadol HCl (Ultram) 50 mg PO BID [facility] Last Admin: 02/06/17 17:51 Dose: 50 mg - Labs Labs: PT 12.4 SECONDS (9.7-12.2) H 02/02/17 17:45 INR 1.1 02/02/17 17:45 APTT 32 SECONDS (21-34) 02/02/17 17:45 - Constitutional Appears: Non-toxic - Head Exam Head Exam: NORMAL INSPECTION - Eye Exam Eye Exam: Normal appearance - ENT Exam ENT Exam: Mucous Membranes Moist - Neck Exam Neck Exam: Normal Inspection - Respiratory Exam Respiratory Exam: NORMAL BREATHING PATTERN - Cardiovascular Exam Cardiovascular Exam: REGULAR RHYTHM - GI/Abdominal Exam GI & Abdominal Exam: Normal Bowel Sounds - Rectal Exam Rectal Exam: Deferred - Extremities Exam Extremities Exam: Pedal Edema - Back Exam Back Exam: NORMAL INSPECTION - Neurological Exam Neurological Exam: Alert - Psychiatric Exam Psychiatric exam: Normal Affect - Skin Skin Exam: Normal Color Assessment and Plan (1) Hypertensive urgency Assessment & Plan: recommend the addition of HCTZ 25 mg daily Status: Acute (2) Sick sinus syndrome Assessment & Plan: normal pacemaker function Status: Acute
[2017-02-07] MEDS: Fluticasone-Salmeterol 500-50mcg Diskus INH SCH (07:35)
--- NOTE | 2017-02-07 08:34 | CP.PCM.PN ---
Subjective - Date & Time of Evaluation Date of Evaluation: 02/07/17 Time of Evaluation: 08:14 - Subjective Subjective: Pt no complain; Wlk tomurse station w/ cane Feels weak c/o laying down; No CP, no SOB, no edema, no palpitation, no cough no GI complain Objective - Vital Signs/Intake and Output Vital Signs (last 24 hours): Temp Pulse Resp BP Pulse Ox 98.3 F 61 18 148/80 98 02/07/17 07:05 02/07/17 07:05 02/07/17 07:05 02/07/17 07:05 02/07/17 07:05 - Medications Medications: Current Medications Acetaminophen (Tylenol 325mg Tab) 650 mg PO BID [facility] Last Admin: 02/06/17 17:50 Dose: 650 mg Aspirin (Aspirin Chewable) 81 mg PO DAILY [facility] Last Admin: 02/06/17 09:11 Dose: 81 mg Escitalopram Oxalate (Lexapro) 30 mg PO DAILY [facility] Last Admin: 02/06/17 09:12 Dose: 30 mg Lamotrigine (Lamictal) 25 mg PO DAILY [facility] Last Admin: 02/06/17 09:12 Dose: 25 mg Losartan Potassium (Cozaar) 100 mg PO DAILY [facility] Last Admin: 02/06/17 09:12 Dose: 100 mg Metoprolol Tartrate (Lopressor) 100 mg PO BID [facility] Last Admin: 02/06/17 17:52 Dose: 100 mg Rosuvastatin Calcium (Crestor) 5 mg PO HS [facility] Last Admin: 02/06/17 21:17 Dose: 5 mg Fluticasone/Salmeterol (Advair Diskus 500/50) 1 puff INH RQ12 [facility] Last Admin: 02/07/17 07:35 Dose: 1 puff Tramadol HCl (Ultram) 50 mg PO BID [facility] Last Admin: 02/06/17 17:51 Dose: 50 mg - Labs Labs: PT 12.4 SECONDS (9.7-12.2) H 02/02/17 17:45 INR 1.1 02/02/17 17:45 APTT 32 SECONDS (21-34) 02/02/17 17:45 - Constitutional Appears: No Acute Distress - Head Exam Head Exam: NORMAL INSPECTION - Eye Exam Eye Exam: Normal appearance - ENT Exam ENT Exam: Mucous Membranes Moist - Neck Exam Neck Exam: Full ROM. absent: Lymphadenopathy, Thyromegaly - Respiratory Exam Respiratory Exam: Clear to Ausculation Bilateral. absent: Rales, Rhonchi, Wheezes - Cardiovascular Exam Cardiovascular Exam: REGULAR RHYTHM, +S1, +S2. absent: Gallop, JVD - GI/Abdominal Exam GI & Abdominal Exam: Soft. absent: Tenderness, Mass - Extremities Exam Extremities Exam: Calf Tenderness, Full ROM, Normal Capillary Refill. absent: Joint Swelling Assessment and Plan - Assessment and Plan (Free Text) Assessment: HTN urgency w/ headache/ R sided numbness Liver mass R lobe Asthma Alpha feto - normal; Liver CT no mass Cont meds Discharge if clear c/o GI discuss w/ patient - will be compliant w/ GI f/up
--- NOTE | 2017-02-07 14:02 | CARD ---
APPROVED REPORT EKG Measurement Heart [id number] <Conclusion> Atrial-paced rhythm Moderate voltage criteria for LVH, may be normal variant Nonspecific T wave abnormality Abnormal ECG
[2017-02-07 16:14] VITALS: BP 129/79; PULSE 60; RESP 20; TEMP 98.1; O2SAT 97
--- NOTE | 2017-02-08 19:15 | EEG ---
DATE: 02/06/2017 INTRODUCTION: This is a digitally recorded EEG monitoring using standard EEG montages. BACKGROUND RHYTHM: The EEG shows a background activity of 8-9 Hz alpha activity in parietooccipital region. The EEG activity is bilaterally symmetrical and synchronous. There is attenuation of the background activity on eye opening. ABNORMAL POTENTIALS: No spikes, sharp waves, or focal slowing was seen. PHOTIC STIMULATION AND HYPERVENTILATION: Photic stimulation did not reveal any abnormality. Hyperventilation was not performed. IMPRESSION: Normal EEG. No epileptiform activity seen in this EEG recording. Musaid Arely Tabor MD cc: [id number] TT: 02/08/2017 19:14:06 Confirmation # [id number] Dictation # [id number] MTDD
--- NOTE | 2017-02-20 08:48 | CP.PCM.DIS ---
Provider - Provider Date of Admission: 02/03/17 15:06 71 y/o female HTN, Depression and childhood Asthma. Pt has headache x 3-4 wks. She was seen c/o home visiting nurse & was noted to have SBP >210. Pt seen in ER & admitted for accelerated HTN and one side numbness, Attending physician: Veto Casillas MD Time Spent in preparation of Discharge (in minutes): 8 Hospital Course - Lab Results Lab Results: Most Recent Lab Values WBC 7.3 K/uL (4.8-10.8) 02/02/17 17:45 RBC 4.86 Mil/uL (3.80-5.20) 02/02/17 17:45 Hgb 13.2 g/dL (11.0-16.0) 02/02/17 17:45 Hct 40.1 % (34.0-47.0) 02/02/17 17:45 MCV 82.3 fL (81.0-99.0) 02/02/17 17:45 MCH 27.2 pg (27.0-31.0) 02/02/17 17:45 MCHC 33.0 g/dL (33.0-37.0) 02/02/17 17:45 RDW 15.2 % (11.5-14.5) H 02/02/17 17:45 Plt Count 211 K/uL (130-400) 02/02/17 17:45 MPV 9.2 fL (7.2-11.7) 02/02/17 17:45 Neut % (Auto) 64.7 % (50.0-75.0) 02/02/17 17:45 Lymph % (Auto) 25.5 % (20.0-40.0) 02/02/17 17:45 Phelps % (Auto) 6.9 % (0.0-10.0) 02/02/17 17:45 Eos % (Auto) 2.4 % (0.0-4.0) 02/02/17 17:45 Baso % (Auto) 0.5 % (0.0-2.0) 02/02/17 17:45 Neut # 4.7 K/uL (1.8-7.0) 02/02/17 17:45 Lymph # 1.9 K/uL (1.0-4.3) 02/02/17 17:45 Phelps # 0.5 K/uL (0.0-0.8) 02/02/17 17:45 Eos # 0.2 K/uL (0.0-0.7) 02/02/17 17:45 Baso # 0.0 K/uL (0.0-0.2) 02/02/17 17:45 PT 12.4 SECONDS (9.7-12.2) H 02/02/17 17:45 INR 1.1 02/02/17 17:45 APTT 32 SECONDS (21-34) 02/02/17 17:45 Sodium 138 mmol/L (132-148) 02/02/17 17:45 Potassium 3.7 mmol/L (3.6-5.2) 02/02/17 17:45 Chloride 96 mmol/L (98-107) L 02/02/17 17:45 Carbon Dioxide 29 mmol/L (22-30) 02/02/17 17:45 Anion Gap 18 (10-20) 02/02/17 17:45 BUN 19 mg/dL (7-17) H 02/02/17 17:45 Creatinine 0.9 MG/DL (0.7-1.2) 02/02/17 17:45 Est GFR ( Amer) > 60 02/02/17 17:45 Est GFR (Non-Af Amer) > 60 02/02/17 17:45 POC Glucose (mg/dL) 113 mg/dL (65-110) H 02/07/17 15:50 Random Glucose 97 mg/dL (65-105) 02/02/17 17:45 Hemoglobin A1c 5.8 % (4.2-6.5) 02/02/17 17:45 Calcium 9.5 mg/dl (8.6-10.4) 02/02/17 17:45 Total Bilirubin 0.6 mg/dL (0.2-1.3) 02/02/17 17:45 AST 26 U/L (14-36) 02/02/17 17:45 ALT 17 U/L (9-52) 02/02/17 17:45 Alkaline Phosphatase 112 U/L (38-126) 02/02/17 17:45 Troponin I < 0.0120 ng/mL (0.00-0.120) 02/02/17 17:45 Total Protein 7.7 g/dL (6.3-8.3) 02/02/17 17:45 Albumin 4.3 g/dL (3.5-5.0) 02/02/17 17:45 Globulin 3.4 gm/dL (2.2-3.9) 02/02/17 17:45 Albumin/Globulin Ratio 1.3 (1.0-2.1) 02/02/17 17:45 Triglycerides 91 mg/dL (0-149) 02/02/17 17:45 Cholesterol 240 mg/dL (0-199) H 02/02/17 17:45 LDL Cholesterol Direct 122 mg/dL (0-129) 02/02/17 17:45 HDL Cholesterol 57 mg/dL (30-70) 02/02/17 17:45 Alpha Fetoprotein 2.4 ng/mL (0.0-7.5) 02/06/17 19:30 TSH 3rd Generation 1.47 mIU/L (0.46-4.68) 02/02/17 21:11 Urine Color Yellow (YELLOW) 02/03/17 07:50 Urine Clarity Hazy (Clear) 02/03/17 07:50 Urine pH 6.0 (5.0-8.0) 02/03/17 07:50 Ur Specific [place] 1.012 (1.003-1.030) 02/03/17 07:50 Urine Protein Negative mg/dL (NEGATIVE) 02/03/17 07:50 Urine Glucose (UA) Normal mg/dL (Normal) 02/03/17 07:50 Urine Ketones Negative mg/dL (NEGATIVE) 02/03/17 07:50 Urine Blood Negative (NEGATIVE) 02/03/17 07:50 Urine Nitrate Negative (NEGATIVE) 02/03/17 07:50 Urine Bilirubin Negative (NEGATIVE) 02/03/17 07:50 Urine Urobilinogen Normal mg/dL (0.2-1.0) 02/03/17 07:50 Ur Leukocyte Esterase Trace Latasha/uL (Negative) 02/03/17 07:50 Urine WBC (Auto) 7 /hpf (0-5) H 02/03/17 07:50 Urine RBC (Auto) 1 /hpf (0-3) 02/03/17 07:50 Ur Squamous Epith Cells 9 /hpf (0-5) H 02/03/17 07:50 Urine Bacteria Occ (<OCC) H 02/03/17 07:50 - Hospital Course Hospital Course: Pt admitted for Hypertensive urgency w/ one sided numbness. Pt referred to Neuro and Cardio. Pt noted has wheezing and place on Advair. BP & wheezing was controlled. However initial CXR was officially read ? left sided consolitation but not clinically has pneumonia/ A Chest CT showed a small enhancing mass on liver but more detail CT of liver was negaive. He was also seen c/o GI Discharge Exam - Head Exam Head Exam: NORMAL INSPECTION - Eye Exam Eye Exam: Normal appearance - ENT Exam ENT Exam: Mucous Membranes Moist - Respiratory Exam Respiratory Exam: Clear to PA & Lateral. absent: Rales, Rhonchi, Wheezes - Cardiovascular Exam Cardiovascular Exam: REGULAR RHYTHM, +S1, +S2. absent: Gallop, JVD - GI/Abdominal Exam GI & Abdominal Exam: Soft. absent: Mass, Tenderness - Extremities Exam Extremities exam: full ROM, normal capillary refill, pedal pulses present - Back Exam Back exam: paraspinal tenderness, tenderness - Neurological Exam Neurological exam: Abnormal Gait Discharge Plan - Discharge Medications Prescriptions: Valsartan [Diovan] 320 mg PO DAILY #0 tab hydroCHLOROthiazide [Microzide] 12.5 mg PO DAILY #0 cap - Follow Up Plan Condition: GOOD Disposition: REHAB FACILITY/REHAB UNIT Instructions: Heart Healthy Diet (DC), Hypertensive Crisis (DC)
== END 2017-02-07 16:40 | DRG 305 ==
LOC: C.ER 16:47 → C.9E 18:47 → C.6T 20:29 → OBSVTOIN 02-03 15:06 → C.6T 02-04 22:21
PROVIDERS: ADMIT Internal Medicine; ATTEND Internal Medicine
DX: I16.0 Hypertensive urgency (principal); I67.4 Hypertensive encephalopathy; I49.5 Sick sinus syndrome; I10 Essential (primary) hypertension; R20.0 Anesthesia of skin; D18.03 Hemangioma of intra-abdominal structures; J45.909 Unspecified asthma, uncomplicated; M54.5 Low back pain; G89.29 Other chronic pain; E78.00 Pure hypercholesterolemia, unspecified; F32.9 Major depressive disorder, single episode, unspecified; Z95.0 Presence of cardiac pacemaker; Z90.49 Acquired absence of other specified parts of digestive tract